=== PATIENT | male | born 1965 | race Caucasian/White ===

== ENCOUNTER 2020-04-26 16:39 | Emergency (ER) | payer OTHER ==
[~2020-04-26] VITALS: Ht 167.6 cm; Wt 83.5 kg
[2020-04-26] MEDS ORDERED: CIPROFLOXIN HC2.5 M1 OPHTHALMIC (18:08)
[2020-04-26] MEDS ORDERED: NAPROSYN500 MG PO (18:08)
[2020-04-26 18:18] VITALS: BP 132/60
== END 2020-04-26 18:19 | disposition home or self-care (01) ==
LOC: M.ERS 16:39
DX: S05.01XA Injury of conjunctiva and corneal abrasion without foreign body, right eye, initial encounter (principal); W22.8XXA Striking against or struck by other objects, initial encounter; Y93.89 Activity, other specified; Y92.89 Other specified places as the place of occurrence of the external cause; Y99.8 Other external cause status